=== PATIENT | male | born 1980 ===

== ENCOUNTER 2022-02-28 17:55 | Inpatient (IN) | payer BC ==
[2022-02-28] MEDS ORDERED: LORazepam 2 MG/ML INJ IM PRN (19:41)
[2022-02-28] MEDS ORDERED: MAGNESIUM HYDROXIDE 2,400 MG/10 ML CUP PO PRN (19:41)
[2022-02-28] MEDS ORDERED: HALOPERIDOL LACTATE 5 MG/ML 1 ML VIAL IM PRN (19:41)
[2022-02-28] MEDS ORDERED: haloperidoL 5 MG TAB PO PRN (19:41)
[2022-02-28] MEDS ORDERED: MAG HYDROX/AL HYDROX/SIMETH 30 ML CUP PO PRN (19:41)
[2022-02-28] MEDS ORDERED: ACETAMINOPHEN TAB 325 MG TAB PO PRN (19:41)
[2022-02-28] MEDS ORDERED: ONDANSETRON 4 MG TAB PO PRN (19:56)
[2022-02-28] MEDS ORDERED: guaiFENesin SYRUP 100MG/5ML 200 MG/10 ML CUP PO PRN (19:56)
[2022-02-28] MEDS ORDERED: QUEtiapine 25 MG TAB PO SCH (21:00)
[2022-03-01] MEDS: polyethylene glycoL 3350 17 GM POWD.PACK PO SCH ×3 (03:23→19:46)
[2022-03-01] MEDS: DOCUSATE 100 MG CAP PO SCH ×3 (03:23→19:45)
[2022-03-01] MEDS: LACTULOSE 20 GM/30 ML CUP PO SCH ×4 (03:23→19:45)
[2022-03-01 07:52] LABS: Glucose,Whole Blood 88 mg/dL (70-110)
[2022-03-01] MEDS: PANTOPRAZOLE 40 MG TABLET PO SCH (08:40)
[2022-03-01] MEDS: FERROUS SULFATE 325 MG TAB PO SCH (08:40)
[2022-03-01] MEDS: RIFAXIMIN 550 MG TABLET PO SCH ×2 (09:03→19:45)
[2022-03-01] MEDS: THIAMINE 100 MG TAB PO SCH (09:03)
[2022-03-01] MEDS: NICOTINE 14MG/24HR PATCH TRANSDERM SCH (09:04)
[2022-03-01 09:45] LABS: Anisocytosis Slight; Basophils % (A) 1 %; Eosinophils # (A) 0.5 k/uL (0-0.7); Eosinophils % (A) 11 %; HCT 36.6 % (39.0-53.0); HGB 11.4 gm/dL (13.0-17.5); Hypochromasia Slight; Lymphocytes # (A) 0.8 k/uL (1.0-4.8); Lymphocytes % (A) 18 %; MCH 30.8 pg (25.0-35.0); MCHC 31.2 g/dL (31.0-37.0); MCV 98.9 fL (80.0-100.0); Macrocytosis Moderate; Mean Platelet Volume 7.8; Monocytes # (A) 0.2 k/uL (0-1.0); Monocytes % (A) 5 %; Neutrophils # (A) 2.7 k/uL (1.3-7.7); Neutrophils % (A) 62 %; Platelet Count 116 k/uL (150-450); RDW 19.1 % (11.5-15.5); WBC 4.3 k/uL (3.8-10.6)
[2022-03-01 10:00] LABS: ALT 45 U/L (4-49); AST 80 U/L (17-59); African American GFR (CKD) >90 (>60 ml/min/1.73 sqM); Albumin 3.6 g/dL (3.5-5.0); Alkaline Phosphatase 172 U/L (38-126); Anion Gap 13 mmol/L; Bilirubin, Delta 0.7 mg/dL (0.0-0.2); Bilirubin,Unconjugated 2.2 mg/dL (0.0-1.1); Blood Urea Nitrogen 13 mg/dL (9-20); Carbon Dioxide 20 mmol/L (22-30); Chloride 108 mmol/L (98-107); Glucose 213 mg/dL (74-99); Non-African American GFR(CKD) >90 (>60 ml/min/1.73 sqM); Sodium 141 mmol/L (137-145); Total Bilirubin 2.9 mg/dL (0.2-1.3); Total Protein 8.1 g/dL (6.3-8.2)
[2022-03-01] MEDS ORDERED: risperiDONE 1 MG TAB PO STA (10:45)
[2022-03-01 12:42] LABS: Glucose,Whole Blood 82 mg/dL (70-110)
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
--- NOTE | 2022-03-01 16:40 | P.CONS ---
History of Present Illness - Reason for Consult Consult date: 03/01/22 - History of Present Illness Patient is a 41-year-old male with past medical history of cirrhosis that is transferred for [facility] for behavioral disturbances. He has been admitted to mental health unit for further management of symptoms. [facility] has been consulted for medical management of this patient. Patient states that he would like to be transferred to mental health unit closer to [place]. Patient states that he has been off his cirrhosis medications over the past 3 months. He follows a carton folder in [place]. Patient does not currently drink. He has quit since May. Prior to that, endorses drinking a fifth of whiskey on a daily basis over the past 7 years. Patient currently denies any symptoms. She denies any headache, lower extremity edema, nausea or vomiting, fever or chills, cough, chest pain, shortness of breath, palpitations, changes in urination or bowel habits. No changes in appetite or weight. She denies any dizziness, numbness/weakness/tingling of the extremities. Review of systems is performed and is negative except above. Her vital signs are stable. General: non toxic, no distress, appears at stated age, obese Derm: warm, dry, slightly jaundiced Head: atraumatic, normocephalic, symmetric Eyes: EOMI, no lid lag, icteric sclera Mouth: no lip lesion, mucus membranes moist Cardiovascular: S1S2 reg, no murmur Lungs: CTA bilateral, no rhonchi, no rales , no accessory muscle use Abdominal: soft, nontender to palpation, no guarding, hepatomegaly Ext: no gross muscle atrophy, no edema, no contractures Neuro: CN II-XI grossly intact, no focal neuro deficits Psych: Alert, oriented, appropriate affect #Cirrhosis #Hyperammonemia #Macrocytic anemia #Thrombocytopenia Patient will be restarted on his home medication of rifaximin. Increase lactulose dosing to 20 g mouth 4 times a day. Recheck ammonia level tomorrow morning. Patient advised to establish care with a carton folder on discharge. Start propranolol 20 mg by mouth twice a day. Macrocytic anemia and thrombocytopenia likely related to history of long- standing alcohol abuse and cirrhosis. Thank you for this consultation. Please call [facility] with additional questions or concerns. Medications and Allergies Home Medications Medication Instructions Recorded Confirmed Type Docusate Sodium [Dok] 100 mg PO 02/28/22 History Ferrous Sulfate [Iron] 325 mg PO 02/28/22 History Lactulose [Constulose] 30 ml PO BID 02/28/22 02/28/22 History Ondansetron [Zofran] 4 mg PO Q6HR PRN 02/28/22 02/28/22 History Pantoprazole [Protonix] 40 mg PO DAILY 02/28/22 02/28/22 History QUEtiapine [SEROquel] 25 mg PO HS 02/28/22 02/28/22 History Rifaximin [Xifaxan] 550 mg PO BID 02/28/22 02/28/22 History Thiamine [Vitamin B-1] 100 mg PO DAILY 02/28/22 02/28/22 History guaiFENesin SYRUP 100MG/5ML 200 mg PO Q4HR PRN 02/28/22 02/28/22 History [Robitussin] polyethylene glycoL 3350 [Miralax] 17 gm PO BID 02/28/22 02/28/22 History Allergies Allergy/AdvReac Type Severity Reaction Status Date / Time Penicillins Allergy Unknown Verified 02/28/22 19:39 Physical Exam Vitals: Vital Signs Temp Pulse Resp BP Pulse Ox 03/01/22 11:00 97.8 F 99 16 135/72 99 Results CBC & Chem 7: 03/01/22 09:13 03/01/22 09:13 Labs: Abnormal Lab Results - Last 24 Hours (Table) 03/01/22 03/01/22 03/01/22 Range/Units 09:13 09:13 09:13 RBC 3.70 L (4.30-5.90) m/uL Hgb 11.4 L (13.0-17.5) gm/dL Hct 36.6 L (39.0-53.0) % RDW 19.1 H (11.5-15.5) % Plt Count 116 L (150-450) k/uL Lymphocytes # 0.8 L (1.0-4.8) k/uL Chloride 108 H (98-107) mmol/L Carbon Dioxide 20 L (22-30) mmol/L Creatinine 0.62 L (0.66-1.25) mg/dL Glucose 213 H (74-99) mg/dL Total Bilirubin 2.9 H (0.2-1.3) mg/dL Unconjugated Bilirubin 2.2 H (0.0-1.1) mg/dL Delta Bilirubin 0.7 H (0.0-0.2) mg/dL AST 80 H (17-59) U/L Alkaline Phosphatase 172 H (38-126) U/L Ammonia 120 H (<30) umol/L
[2022-03-01 17:27] LABS: Chol/HDL Ratio 2.49 Ratio; LDL Cholesterol,Calculated 95.5 mg/dL (0.0-131.0); VLDL Calculation 16.96 mg/dL (5.00-40.00)
[2022-03-01 17:48] LABS: Glucose,Whole Blood 95 mg/dL (70-110)
[2022-03-01] MEDS: PROPRANOLOL 20 MG TAB PO SCH (19:45)
[2022-03-01] MEDS: risperiDONE 2 MG TAB PO SCH (19:45)
[2022-03-01] MEDS: LORazepam 1 MG TAB PO PRN (20:15)
[2022-03-01 20:23] LABS: Glucose,Whole Blood 137 mg/dL (70-110)
[2022-03-02] MEDS: LACTULOSE 20 GM/30 ML CUP PO SCH ×4 (09:46→22:57)
[2022-03-02] MEDS: DOCUSATE 100 MG CAP PO SCH ×2 (09:46→22:56)
[2022-03-02] MEDS: PANTOPRAZOLE 40 MG TABLET PO SCH (09:47)
[2022-03-02] MEDS: FERROUS SULFATE 325 MG TAB PO SCH (09:47)
[2022-03-02] MEDS: THIAMINE 100 MG TAB PO SCH (09:47)
[2022-03-02] MEDS: PROPRANOLOL 20 MG TAB PO SCH ×2 (09:47→22:56)
[2022-03-02] MEDS: NICOTINE 14MG/24HR PATCH TRANSDERM SCH (09:48)
[2022-03-02] MEDS: RIFAXIMIN 550 MG TABLET PO SCH ×2 (09:48→22:56)
[2022-03-02] MEDS: polyethylene glycoL 3350 17 GM POWD.PACK PO SCH ×2 (09:49→22:57)
[2022-03-02] MEDS: risperiDONE 2 MG TAB PO SCH (09:51)
--- NOTE | 2022-03-02 14:36 | P.PN ---
Progress Note - Text Progress Note Date: 03/02/22 Interval History: Patient was seen wandering the hallways and was directable and agreeable to speak with movie writer in the office. The patient continues to be slightly disoriented, believing that he was in a substance abuse rehabilitation facility. He was reoriented. He is currently denying any suicidal or homicidal ideation, intention, and/or plan. He is not reporting any auditory or visual hallucinations. He denies any paranoia or other delusions. He has been in adherent with his medications and is not endorsing any significant side effect at this time. He denies any issues regarding his sleep or his appetite. Mental Status Exam: General Appearance: Patient appears to be stated age is more alert, directable, and cooperative. Behavior: Patient is calmly seated without any agitated behavior. Speech: Patient's speech is fluent and nonpressured. Slightly dysarthric and slurred. Some word finding difficulty Mood/Affect: Mood is improving mildly, affect is congruent and blunted. Suicidality/Homicidality: Patient denies having any suicidal or homicidal idea tion intent or plan. Perceptions: Patient denies any visual hallucinations and denies any auditory hallucinations Though content/process: There is no evidence of any delusional thought content and thought process is linear and goal-directed. Memory and concentration: AOX2 - he was not oriented to location, grossly intact for the purposes of this session Judgment and insight: Improving mildly Vital Signs Temp 97.8 F 03/01/22 11:00 Pulse 99 03/01/22 11:00 Resp 16 03/01/22 11:00 BP 135/72 03/01/22 11:00 Pulse Ox 99 03/01/22 11:00 FiO2 Laboratory Results - Last 24 Hours 03/01/22 03/01/22 03/01/22 09:13 09:13 17:46 POC Glucose (mg/dL) 95 POC Glu Medical Office Administrator ID Izabela Aguilar [address] Glu mg/dL 88 Hemoglobin A1c 4.7 Triglycerides 84.80 Cholesterol 188.00 LDL Cholesterol, Calc 95.5 VLDL Cholesterol, Calc 16.96 HDL Cholesterol 75.50 H Cholesterol/HDL Ratio 2.49 03/01/22 20:21 POC Glucose (mg/dL) 137 H POC Glu Medical Office Administrator ID Yves Ruff [address] Glu mg/dL Hemoglobin A1c Triglycerides Cholesterol LDL Cholesterol, Calc VLDL Cholesterol, Calc HDL Cholesterol Cholesterol/HDL Ratio Assessment Schizophrenia Alcohol use disorder Plan: -Patient continues to meet criteria for inpatient psychiatric admission for symptom stabilization and safety. The patient has been petitioned and certified -Medications: Increase Risperdal to 3 mg by mouth twice a day for psychosis -When necessary Ativan and Haldol for agitation/aggression. -NRT - nicotine patch -SW on board for discharge planning. Encouraged the patient to participate in milieu.
[2022-03-02] MEDS: LORazepam 1 MG TAB PO PRN (14:41)
[2022-03-02] MEDS ORDERED: LACTULOSE 20 GM/30 ML CUP PO ONE (21:30)
[2022-03-02] MEDS: risperiDONE 1 MG TAB PO SCH (22:56)
[2022-03-03] MEDS: PROPRANOLOL 20 MG TAB PO SCH ×2 (08:22→21:26)
[2022-03-03] MEDS: LACTULOSE 20 GM/30 ML CUP PO SCH ×3 (08:22→21:26)
[2022-03-03] MEDS: DOCUSATE 100 MG CAP PO SCH (08:22)
[2022-03-03] MEDS: risperiDONE 1 MG TAB PO SCH ×2 (08:22→21:26)
[2022-03-03] MEDS: PANTOPRAZOLE 40 MG TABLET PO SCH (08:22)
[2022-03-03] MEDS: FERROUS SULFATE 325 MG TAB PO SCH (08:22)
[2022-03-03] MEDS: polyethylene glycoL 3350 17 GM POWD.PACK PO SCH ×2 (08:23→21:27)
[2022-03-03] MEDS: NICOTINE 14MG/24HR PATCH TRANSDERM SCH (08:23)
[2022-03-03] MEDS: RIFAXIMIN 550 MG TABLET PO SCH ×2 (08:23→21:27)
[2022-03-03] MEDS: THIAMINE 100 MG TAB PO SCH (08:24)
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
[2022-03-03] MEDS: MIRTAZAPINE 15 MG TAB PO SCH (21:26)
[2022-03-04] MEDS: FERROUS SULFATE 325 MG TAB PO SCH (08:08)
[2022-03-04] MEDS: THIAMINE 100 MG TAB PO SCH (08:08)
[2022-03-04] MEDS: LACTULOSE 20 GM/30 ML CUP PO SCH ×3 (08:08→19:57)
[2022-03-04] MEDS: PROPRANOLOL 20 MG TAB PO SCH ×3 (08:08→19:56)
[2022-03-04] MEDS: NICOTINE 14MG/24HR PATCH TRANSDERM SCH (08:08)
[2022-03-04] MEDS: PANTOPRAZOLE 40 MG TABLET PO SCH (08:08)
[2022-03-04] MEDS: risperiDONE 1 MG TAB PO SCH ×2 (08:08→19:56)
[2022-03-04] MEDS: polyethylene glycoL 3350 17 GM POWD.PACK PO SCH ×2 (08:08→19:57)
[2022-03-04] MEDS: RIFAXIMIN 550 MG TABLET PO SCH ×2 (08:09→19:57)
[2022-03-04] MEDS: MIRTAZAPINE 15 MG TAB PO SCH (19:57)
--- NOTE | 2022-03-04 20:21 | P.PN ---
Progress Note - Text Progress Note Date: 03/04/22 Interval history: Patient was seen wandering the hallways and was directable and agreeable to speak with sports book writer. He is focused on discharge, paying his PO and getting bailed out of here. At this time, patient denies any suicidal or homicidal ideations, intent or plan. He denies any auditory or visual hallucinations. Patient denies any side effects from the medications and has been compliant with meds. Mental status exam: General Appearance: Patient appears to be stated age, is overweight, dressed in clean casual attire, fair hygiene. Behavior: No agitated behavior. Patient is calm and directable. Speech: Patient's speech is fluent and non-pressured. Mood/Affect: Mood is improving mildly, affect is congruent and constricted. Suicidality/Homicidality: Patient denies having any suicidal or homicidal ideation intent or plan. Perceptions: Patient denies any auditory or visual hallucinations. Though content/process: There is no evidence of any delusional thought content and thought process is linear and goal-directed. Memory and concentration: AOX3, grossly intact for the purposes of this session Judgment and insight: improving mildly Assessment/Plan: Continue with current diagnosis. Patient continues to meet criteria for inpatient psychiatric admission for symptom stabilization and safety. Patient will be maintained on current psychotropic medication regimen. Monitor for medication compliance and for any psychotropic medication side effects. Will continue to monitor ongoing response to treatment. Encouraged participation in milieu.
[2022-03-04] MEDS: LORazepam 1 MG TAB PO PRN (22:02)
[2022-03-05] MEDS: polyethylene glycoL 3350 17 GM POWD.PACK PO SCH ×2 (08:32→20:20)
[2022-03-05] MEDS: risperiDONE 1 MG TAB PO SCH ×2 (08:33→20:20)
[2022-03-05] MEDS: PROPRANOLOL 20 MG TAB PO SCH ×2 (08:33→20:19)
[2022-03-05] MEDS: RIFAXIMIN 550 MG TABLET PO SCH ×2 (08:33→21:57)
[2022-03-05] MEDS: PANTOPRAZOLE 40 MG TABLET PO SCH (08:33)
[2022-03-05] MEDS: NICOTINE 14MG/24HR PATCH TRANSDERM SCH (08:33)
[2022-03-05] MEDS: THIAMINE 100 MG TAB PO SCH (08:34)
[2022-03-05] MEDS: FERROUS SULFATE 325 MG TAB PO SCH (08:34)
[2022-03-05] MEDS: LACTULOSE 20 GM/30 ML CUP PO SCH ×3 (08:34→20:20)
--- NOTE | 2022-03-05 18:17 | P.PN ---
Progress Note - Text Progress Note Date: 03/05/22 Interval history: Patient was seen wandering the hallways and was directable and agreeable to speak with lyric writer. He continues to be focused on discharge and believed he was being discharged today and has been fixated on his ride home. At this time, patient denies any suicidal or homicidal ideations, intent or plan. He denies any auditory or visual hallucinations. Patient denies any side effects from the medications and has been compliant with meds. Mental status exam: General Appearance: Patient appears to be stated age, is overweight, dressed in clean hospital gown, fair hygiene. Behavior: No agitated behavior. Patient is calm and directable. Speech: Patient's speech is fluent and non-pressured. Mood/Affect: Mood is improving mildly, affect is congruent and constricted. Suicidality/Homicidality: Patient denies having any suicidal or homicidal ideation intent or plan. Perceptions: Patient denies any auditory or visual hallucinations. Though content/process: There is no evidence of any delusional thought content and thought process is linear and goal-directed. Memory and concentration: AOX3, grossly intact for the purposes of this session Judgment and insight: improving mildly Assessment/Plan: Continue with current diagnosis. Patient continues to meet criteria for inpatient psychiatric admission for symptom stabilization and safety. Patient will be maintained on current psychotropic medication regimen. Monitor for medication compliance and for any psychotropic medication side effects. Will continue to monitor ongoing response to treatment. Encouraged participation in milieu.
[2022-03-05] MEDS: MIRTAZAPINE 15 MG TAB PO SCH (20:19)
[2022-03-05] MEDS: LORazepam 1 MG TAB PO PRN (23:43)
[2022-03-06] MEDS: LACTULOSE 20 GM/30 ML CUP PO SCH ×3 (08:15→20:46)
[2022-03-06] MEDS: polyethylene glycoL 3350 17 GM POWD.PACK PO SCH ×2 (08:15→20:51)
[2022-03-06] MEDS: FERROUS SULFATE 325 MG TAB PO SCH (08:17)
[2022-03-06] MEDS: RIFAXIMIN 550 MG TABLET PO SCH ×2 (08:17→20:45)
[2022-03-06] MEDS: PANTOPRAZOLE 40 MG TABLET PO SCH (08:17)
[2022-03-06] MEDS: risperiDONE 1 MG TAB PO SCH ×2 (08:17→20:45)
[2022-03-06] MEDS: THIAMINE 100 MG TAB PO SCH (08:18)
[2022-03-06] MEDS: PROPRANOLOL 20 MG TAB PO SCH ×2 (08:18→20:46)
[2022-03-06 08:53] VITALS: RESP 18; TEMP 97.8
[2022-03-06] MEDS: NICOTINE 14MG/24HR PATCH TRANSDERM SCH (08:53)
--- NOTE | 2022-03-06 13:58 | P.PN ---
Progress Note - Text Progress Note Date: 03/06/22 (.) Interval History: Patient was seen wandering the hallways and was directable and agreeable to speak with senior underwriter in the office. The patient reports no suicidal or homicidal ideation, intent or plan. He is denying any auditory or visual hallucinations. He is denying any paranoia or other delusions. He is currently alert and oriented in all spheres. He deferred mental health court. The patient has been adherent with his medications and is not reporting any significant side effects. He does report some difficulty with sleep as he states that his room is too cold. Mental Status Exam: General Appearance: Patient appears to be stated age is alert, directable, and cooperative. Behavior: Patient is calmly seated without any agitated behavior. Speech: Patient's speech is fluent and nonpressured. Mood/Affect: Mood is improving mildly, affect is congruent and blunted. Suicidality/Homicidality: Patient denies having any suicidal or homicidal ideation intent or plan. Perceptions: Patient denies any visual hallucinations and denies any auditory hallucinations Though content/process: There is no evidence of any delusional thought content and thought process is linear and goal-directed. Memory and concentration: Alert and oriented 3 today. Concentration has significantly improved. Judgment and insight: Improving mildly Vital Signs Temp 97.8 F 03/05/22 09:00 Pulse 77 03/05/22 09:00 Resp 18 03/05/22 09:00 BP 107/58 03/05/22 09:00 Pulse Ox 100 03/05/22 09:00 FiO2 Intake & Output 03/05/22 03/06/22 03/06/22 18:59 06:59 18:59 Weight 83.8 kg Assessment Schizophrenia Alcohol use disorder Plan: -Patient continues to meet criteria for inpatient psychiatric admission for symptom stabilization and safety. The patient deferred mental health court. -Medications: Continue Risperdal 3 mg by mouth twice a day for psychosis with plans to transition to invega on sunday. Continue Remeron 15 mg at bedtime for depression/anxiety/insomnia. -When necessary Ativan and Haldol for agitation/aggression. -NRT - nicotine patch -SW on board for discharge planning. Encouraged the patient to participate in milieu.
[2022-03-06] MEDS: LORazepam 1 MG TAB PO PRN (20:45)
[2022-03-06] MEDS: MIRTAZAPINE 15 MG TAB PO SCH (20:46)
[2022-03-07] MEDS: PANTOPRAZOLE 40 MG TABLET PO SCH (07:46)
[2022-03-07] MEDS: NICOTINE 14MG/24HR PATCH TRANSDERM SCH (09:40)
[2022-03-07] MEDS: FERROUS SULFATE 325 MG TAB PO SCH (09:40)
[2022-03-07] MEDS: LACTULOSE 20 GM/30 ML CUP PO SCH (09:40)
[2022-03-07] MEDS: risperiDONE 1 MG TAB PO SCH (09:41)
[2022-03-07] MEDS: PROPRANOLOL 20 MG TAB PO SCH (09:41)
[2022-03-07] MEDS: THIAMINE 100 MG TAB PO SCH (09:41)
[2022-03-07] MEDS: polyethylene glycoL 3350 17 GM POWD.PACK PO SCH (09:42)
[2022-03-07] MEDS: RIFAXIMIN 550 MG TABLET PO SCH (09:42)
[2022-03-07 09:45] VITALS: BP 103/60; PULSE 73
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
== END 2022-03-07 14:50 | disposition home or self-care (01) | DRG 885 ==
LOC: UNDOADMIN 17:55 → 3MHU 17:55
PROVIDERS: ADMIT Psychiatry & Neurology Psychiatry; ATTEND Psychiatry & Neurology Psychiatry
DX: F20.9 Schizophrenia, unspecified (principal); E72.4 Disorders of ornithine metabolism; F10.11 Alcohol abuse, in remission; Z71.41 Alcohol abuse counseling and surveillance of alcoholic; D75.89 Other specified diseases of blood and blood-forming organs; K74.60 Unspecified cirrhosis of liver; D64.9 Anemia, unspecified; D69.6 Thrombocytopenia, unspecified; Z91.83 Wandering in diseases classified elsewhere; Z65.3 Problems related to other legal circumstances; F32.A Depression, unspecified; G47.00 Insomnia, unspecified; F41.9 Anxiety disorder, unspecified; I10 Essential (primary) hypertension; Z79.899 Other long term (current) drug therapy; Z60.2 Problems related to living alone; Z88.0 Allergy status to penicillin
CPT/HCPCS: 80053; 80061; 82140; 82248; 83036; 84443; 85025